=== PATIENT | female | born 1975 ===

== ENCOUNTER → 2020-07-24 | Outpatient (CLI) | payer OTHER ==
[~2020-07-24] MED LIST: PREN-37 PO
[2020-07-24 12:17] LABS: BASOPHILS % (AUTO) 0 % (0-10); EOSINOPHILS # (AUTO) 0.3 10^3/uL (0.0-0.3); EOSINOPHILS % (AUTO) 4 % (0-10); HEMATOCRIT 39 % (35-52); HEMOGLOBIN 12.2 g/dL (11.5-16.0); LYMPHOCYTES % (AUTO) 11 % (12-44); MEAN CORPUSCULAR HEMOGLOBIN 27 pg (25-34); MEAN CORPUSCULAR HGB CONC 31 g/dL (32-36); MEAN CORPUSCULAR VOLUME 86 fL (80-99); MEAN PLATELET VOLUME 9.1 fL (9.0-12.2); MONOCYTES # (AUTO) 0.5 10^3/uL (0.0-1.0); MONOCYTES % (AUTO) 6 % (0-12); NEUTROPHILS # (AUTO) 6.6 10^3/uL (1.8-7.8); NEUTROPHILS % (AUTO) 78 % (42-75); PLATELET COUNT 263 10^3/uL (130-400); WHITE BLOOD COUNT 8.4 10^3/uL (4.3-11.0)
== END ==
LOC: LAB 12:01
PROVIDERS: ATTEND Nurse Practitioner Family
DX: R04.2 Hemoptysis (principal)
CPT/HCPCS: 36415; 85025; 86480

== ENCOUNTER 2020-09-07 05:29 | Outpatient (RCR) | payer OTHER ==
[~2020-09-07] VITALS: Ht 152.4 cm; Wt 60.2 kg
[~2020-09-07 05:29] MED LIST changes: +LEVO50CA4 PO; +METF-397 PO
--- NOTE | 2020-09-08 08:50 | NUR ---
Notified patient of positive COVID test.
== END 2020-09-07 11:43 | disposition home or self-care (01) ==
LOC: PREOP 05:29
PROVIDERS: ATTEND Surgery
DX: Z01.812 Encounter for preprocedural laboratory examination (principal); U07.1 COVID-19; R10.13 Epigastric pain; R11.0 Nausea
CPT/HCPCS: 87635

== ENCOUNTER 2020-10-16 10:03 | Day surgery (SDC) | payer OTHER ==
[~2020-10-16] VITALS: Ht 152.4 cm; Wt 60.2 kg
[2020-10-16] MEDS ORDERED: LACTATED RINGERS 1,000 ML IV ONE (10:09)
[2020-10-16] MEDS ORDERED: LACTATED RINGERS 1,000 ML IV STA (10:29)
[2020-10-16] MEDS ORDERED: HURRICAINE EXT TUBE (BENZOCAINE) XX PRN (10:30)
[2020-10-16 11:01] VITALS: BP 106/69
[2020-10-16] MEDS ORDERED: proPOfol 200 MG/20 ML (DIPRIVAN) VIAL IV ONE ×2 (11:43→11:57)
[2020-10-16] MEDS ORDERED: HURRICAINE EXT TUBE (BENZOCAINE) ONE (11:56)
[2020-10-16 12:15] VITALS: BP 109/69
[2020-10-16 12:20] VITALS: BP 105/66
--- NOTE | 2020-10-16 12:20 | Progress Note-Post Operative ---
Post-Operative Progess Note Surgeon (s)/Metal Fitter (s) Surgeon GERSON BOLANOS DO Metal Fitter: none Pre-Operative Diagnosis RUQ pain, Nausea Post-Operative Diagnosis Gastritis Esophagitis Gastric Polyps Procedure & Operative Findings Date of Procedure 10/16/20 Procedure Performed/Findings EGD with bx EGD with snare polypectomy Anesthesia Type IV sedation by SQL CONSULTANT Estimated Blood Loss Estimated blood loss (mL): scant Specimens/Packing Specimens Removed antral bx body of stomach bx GE jxn bx Gastric polyp x 4 GERSON BOLANOS DO Oct 16, 2020 12:20
--- NOTE | 2020-10-16 12:21 | Endoscopy Discharge Instruct ---
Endo Procedure/Findings Findings 1.: Polyp (Gastric) 2.: Gastritis Discharge Instructions - Activity: You might feel a little sleepy until tomorrow. This is due to the medicine you received to relax you. Until tomorrow, you should: NOT drive a car, operate machinery or power tools. NOT drink any alcoholic beverages. NOT make any important decisions or sign importortant papers. Do not return to work until tomorrow, unless otherwise instructed. Resume previous activities tomorrow. Diet: Start by taking liquids. If you tolerate liquids, advance to solid food. 1.: EGD in 1 year Notify Physician - If you experience excessive bleeding, unusual abdominal pain, fever, or chest pain, contact your doctor immediately. GERSON BOLANOS DO Oct 16, 2020 12:21
[2020-10-16 12:25] VITALS: BP_SYST 111; BP_SYST 114; BP_DIAS 69; BP_DIAS 70
[2020-10-16 12:55] VITALS: BP 121/85
--- NOTE | 2020-10-16 13:17 | Anesthesia-General Post-Op ---
MAC Patient Condition Mental Status/LOC: Same as Preop Cardiovascular: Satisfactory Nausea/Vomiting: Absent Respiratory: Satisfactory Pain: Controlled Complications: Absent Post Op Complications Complications None Follow Up Care/Instructions Patient Instructions None needed. Anesthesiology Discharge Order Discharge Order Patient is doing well, no complaints, stable vital signs, no apparent adverse anesthesia problems. No complications reported per nursing. ERNESTO CORTEZ CRNA Oct 16, 2020 13:17
[2020-10-16 13:25] VITALS: BP 121/85
--- NOTE | 2020-10-16 23:24 | OPERATIVE REPORT ---
DATE OF SERVICE: PREOPERATIVE DIAGNOSES: Right upper quadrant pain, nausea. POSTOPERATIVE DIAGNOSES: Gastritis, esophagitis as well as gastric polyps. PROCEDURES: 1. EGD with biopsy. 2. EGD with hot snare to remove polyps in the stomach. SURGEON: Ayden Mcfarlane DO FLOORMAN: None. ANESTHESIA: IV sedation by the FISH CLEANER. SPECIMEN: Biopsy of the antrum, biopsy of body of stomach, biopsy of the GE junction and then 5 polyps removed. PROCEDURE NOTE: After informed consent was obtained, the patient was brought to the endoscopy suite, placed in bed in left lateral decubitus position. He was administered IV sedation by the FISH CLEANER who then monitored her vitals the entire time, heart rate, blood pressure and pulse ox and the scope was inserted down the mouth through the esophagus into the stomach. Upon entering the stomach, noted some pretty severe polyps, some gastritis, look like she also had some esophagitis. Pushed through to the antrum, took a picture of the antrum, pushed into the duodenum. Duodenum looked fine. Pulled back and did a biopsy of the antrum. Retroflexed the scope, did not see a hiatal hernia, did a biopsy of the body of stomach and then pulled the scope into the GE junction where it looked like she had some creeping up of the Z line and did another biopsy here. The patient had multiple polyps in the stomach, few of them looked like normal fundic gland polyps and some of them did not look like fundic gland polyps. Elected to do hot biopsies to remove these, removed out five polyps that did not look abnormal, suctioned all this up and sent to pathology. At this point, then suctioned all the air out of stomach, pulled the scope up the esophagus and out the mouth. The patient tolerated the procedure, and she was recovered in endoscopy suite. Job ID: [id number] DocumentID: [id number] Dictated Date: 10/16/2020 22:33:53 Sprinkling Truck Driver Date: 10/16/2020 23:23:27 Dictated By: AYDEN MCFARLANE DO
== END 2020-10-16 13:25 | disposition home or self-care (01) ==
LOC: ENDO 10:03
PROVIDERS: ATTEND Surgery
DX: K29.50 Unspecified chronic gastritis without bleeding (principal); K21.00 Gastro-esophageal reflux disease with esophagitis, without bleeding; K31.7 Polyp of stomach and duodenum; I10 Essential (primary) hypertension; K21.9 Gastro-esophageal reflux disease without esophagitis; E11.9 Type 2 diabetes mellitus without complications; E03.9 Hypothyroidism, unspecified; Z79.899 Other long term (current) drug therapy; Z88.8 Allergy status to other drugs, medicaments and biological substances; Z91.041 Radiographic dye allergy status
CPT/HCPCS: 82962; 84703

== ENCOUNTER 2020-10-30 05:30 | Outpatient (RCR) | payer OTHER ==
[~2020-10-30] VITALS: Ht 154.9 cm; Wt 59.0 kg
== END 2020-10-30 10:19 | disposition home or self-care (01) ==
LOC: PREOP 05:30
PROVIDERS: ATTEND Surgery
DX: Z01.812 Encounter for preprocedural laboratory examination (principal); D49.7 Neoplasm of unspecified behavior of endocrine glands and other parts of nervous system; Z20.822 Contact with and (suspected) exposure to COVID-19
CPT/HCPCS: 87635

== ENCOUNTER → 2020-10-30 | Outpatient (CLI) | payer OTHER | LOC: LAB 08:33 | PROVIDERS: ATTEND Surgery | DX: D44.9 Neoplasm of uncertain behavior of unspecified endocrine gland (principal) | CPT/HCPCS: 36415; 82941; 86255; 86316; 86340 ==

== ENCOUNTER 2020-11-01 12:11 | Day surgery (SDC) | payer OTHER ==
[~2020-11-01] VITALS: Ht 154.9 cm; Wt 59.0 kg
[2020-11-01] MEDS ORDERED: LACTATED RINGERS 1,000 ML IV ONE (12:19)
[2020-11-01] MEDS ORDERED: PROPOFOL INJECTION 50 ML IV ONE (12:35)
[2020-11-01] MEDS ORDERED: MIDAZOLAM 2 MG/2 ML (VERSED) VIAL ONE (12:35)
--- NOTE | 2020-11-01 12:47 | Progress Note-Pre Operative ---
Pre-Operative Progress Note H&P Reviewed The H&P was reviewed, patient examined and no changes noted. Time Seen by Provider: 12:41 Date H&P Reviewed: Nov 01, 2020 Time H&P Reviewed: 12:41 Pre-Operative Diagnosis: Neuroendocrine tumor of stomach GERSON BOLANOS DO Nov 01, 2020 12:46
[2020-11-01] MEDS ORDERED: LACTATED RINGERS 1,000 ML IV STA (12:51)
[2020-11-01] MEDS ORDERED: HURRICAINE EXT TUBE (BENZOCAINE) XX PRN (13:00)
[2020-11-01 13:20] VITALS: BP 95/60
[2020-11-01 13:25] VITALS: BP 95/57
--- NOTE | 2020-11-01 13:26 | Progress Note-Post Operative ---
Post-Operative Progess Note Surgeon (s)/It Support Manager (s) Surgeon GERSON BOLANOS DO It Support Manager: none Pre-Operative Diagnosis Neuroendocrine tumor of stomach Post-Operative Diagnosis same pending path Procedure & Operative Findings Date of Procedure 11/01/20 Procedure Performed/Findings EGD with bx mapping Anesthesia Type IV sedation by SHIP FASTENER Estimated Blood Loss Estimated blood loss (mL): scant Specimens/Packing Specimens Removed Duodenal, Pylorus, antrum, greater curvature, lesser curvature, middle of stomach and random GERSON BOLANOS DO Nov 01, 2020 13:26
--- NOTE | 2020-11-01 13:27 | Endoscopy Discharge Instruct ---
Endo Procedure/Findings Findings 1.: Polyp Discharge Instructions - Activity: You might feel a little sleepy until tomorrow. This is due to the medicine you received to relax you. Until tomorrow, you should: NOT drive a car, operate machinery or power tools. NOT drink any alcoholic beverages. NOT make any important decisions or sign importortant papers. Do not return to work until tomorrow, unless otherwise instructed. Resume pr evious activities tomorrow. Diet: Start by taking liquids. If you tolerate liquids, advance to solid food. 1.: Other Recommendation (EGD in 6 months) Notify Physician - If you experience excessive bleeding, unusual abdominal pain, fever, or chest pain, contact your doctor immediately. GERSON BOLANOS DO Nov 01, 2020 13:27
[2020-11-01 13:28] VITALS: BP 113/77
[2020-11-01 13:30] VITALS: BP 99/62
[2020-11-01 13:35] VITALS: BP 99/62
[2020-11-01 14:09] VITALS: BP 105/63
--- NOTE | 2020-11-01 20:41 | OPERATIVE REPORT ---
DATE OF SERVICE: 11/01/2020 PREOPERATIVE DIAGNOSIS: Neuroendocrine tumor of the stomach. POSTOPERATIVE DIAGNOSIS: Neuroendocrine tumor of the stomach, pending pathology. PROCEDURE: EGD with biopsy. We did a mapping biopsy of the stomach. SURGEON: Ayden Mcfarlane DO PHARMACY TEACHER: None. ANESTHESIA: IV sedation by the TOW BOAT CAPTAIN. SPECIMEN: Multiple biopsies duodenum, right upper pylorus, antrum greater curvature, middle greater curvature, upper portion and lesser curvature middle of the stomach and then just too many polyps. BLOOD LOSS: Scant. FLUIDS: Per anesthesia. POSTOPERATIVE CONDITION: Stable. INDICATION FOR PROCEDURE: The patient is a 45-year-old female who unfortunately had an EGD with a biopsy that showed a neuroendocrine tumor, and she needed a complete workup. She needed a biopsy mapping of the stomach to determine where the tumors were. We also ordered some labs to try and determine which type of neuroendocrine tumor she had. FINDINGS: The patient had multiple polyps biopsied and mapping biopsy done. PROCEDURE NOTE: After informed consent was obtained, the patient was brought to the endoscopy suite, placed in bed in left lateral decubitus position. She was administered IV sedation by the TOW BOAT CAPTAIN who then monitored her vitals the entire time, heart rate, blood pressure and pulse ox and the scope was inserted, pushed down the mouth through the esophagus and into the stomach and then pushing the duodenum. Duodenum looked fine, took a biopsy of the duodenum, pulled back and then saw some little bit of inflammation at the pylorus and did a biopsy right on the pylorus, then pulled back and saw through the antrum, did a biopsy of the antrum and then in the greater curvature took out 2 polyps. This was close to the antrum, pulled back and then the middle portion of the greater curvature to get two more polyps, then went to the upper portion of the greater curvature and took another polyp, saw some polyps in the lesser curvature and took these out as well and then in between the greater and lesser curvature in the middle part of the stomach about prison between the antrum and the esophagus, took 2 more biopsies and then took random polyps. I did not really see very many polyps up in the cardia or near the esophagus. Most of them were in the distal 2/3rd and final thirds of the stomach basically starting just after the pylorus. The patient tolerated the procedure, suctioned all the air out of stomach and then pulled the scope up the esophagus and out the mouth. The patient was recovered in endoscopy suite. Job ID: [id number] DocumentID: [id number] Dictated Date: 11/01/2020 15:58:58 Pack Worker Supervisor Date: 11/01/2020 20:41:14 Dictated By: AYDEN MCFARLANE DO
--- NOTE | 2020-11-06 12:21 | Anesthesia-General Post-Op ---
MAC Significant Intra-Op Events Notes [id number] at [id number] Patient Condition Mental Status/LOC: Same as Preop Cardiovascular: Satisfactory Nausea/Vomiting: Absent Respiratory: Satisfactory Pain: Controlled Complications: Absent Post Op Complications Complications None Follow Up Care/Instructions Patient Instructions None needed. Anesthesiology Discharge Order Discharge Order Patient is doing well, no complaints, stable vital signs, no apparent adverse anesthesia problems. No complications reported per nursing. TYSON TOLLIVER CRNA Nov 06, 2020 12:21
== END 2020-11-01 14:30 | disposition home or self-care (01) ==
LOC: SDC 12:11
PROVIDERS: ATTEND Surgery
DX: K29.50 Unspecified chronic gastritis without bleeding (principal); C7A.092 Malignant carcinoid tumor of the stomach; I10 Essential (primary) hypertension; K21.9 Gastro-esophageal reflux disease without esophagitis; E11.9 Type 2 diabetes mellitus without complications; K57.92 Diverticulitis of intestine, part unspecified, without perforation or abscess without bleeding; Z79.899 Other long term (current) drug therapy; Z79.84 Long term (current) use of oral hypoglycemic drugs; Z91.041 Radiographic dye allergy status; Z88.8 Allergy status to other drugs, medicaments and biological substances
CPT/HCPCS: 82962; 84703; 88305; 88341; 88342; 88360

== ENCOUNTER 2020-12-22 15:20 | Outpatient (RCR) | payer OTHER ==
[2020-11-23 08:53] LABS: BASOPHILS % (AUTO) 0 % (0-10); EOSINOPHILS # (AUTO) 0.9 10^3/uL (0.0-0.3); EOSINOPHILS % (AUTO) 12 % (0-10); HEMATOCRIT 40 % (35-52); HEMOGLOBIN 12.3 g/dL (11.5-16.0); LYMPHOCYTES # (AUTO) 1.8 10^3/uL (1.0-4.0); LYMPHOCYTES % (AUTO) 25 % (12-44); MEAN CORPUSCULAR HEMOGLOBIN 26 pg (25-34); MEAN CORPUSCULAR HGB CONC 31 g/dL (32-36); MEAN CORPUSCULAR VOLUME 83 fL (80-99); MEAN PLATELET VOLUME 8.8 fL (9.0-12.2); MONOCYTES # (AUTO) 0.4 10^3/uL (0.0-1.0); MONOCYTES % (AUTO) 6 % (0-12); NEUTROPHILS % (AUTO) 56 % (42-75); PLATELET COUNT 341 10^3/uL (130-400); WHITE BLOOD COUNT 7.2 10^3/uL (4.3-11.0)
[2020-11-23 09:15] LABS: ALANINE AMINOTRANSFERASE 38 U/L (0-55); ALBUMIN 4.1 GM/DL (3.2-4.5); ALKALINE PHOSPHATASE 69 U/L (40-136); BILIRUBIN,TOTAL 0.3 MG/DL (0.1-1.0); BUN/CREATININE RATIO 13; CALCIUM 9.2 MG/DL (8.5-10.1); CARBON DIOXIDE 27 MMOL/L (21-32); CHLORIDE 105 MMOL/L (98-107); CREATININE SERUM 0.67 MG/DL (0.60-1.30); GFR ESTIMATED > 60; GLUCOSE 111 MG/DL (70-105); POTASSIUM 4.4 MMOL/L (3.6-5.0); SODIUM 141 MMOL/L (135-145); TOTAL PROTEIN 7.4 GM/DL (6.4-8.2)
[~2020-12-22 15:20] MED LIST changes: +IRON SUCROSE 100 MG/5 ML (VENOFER) VIAL CANCER CTR IV SCH; +IRON SUCROSE IV SCH
== END 2021-02-18 | disposition home or self-care (01) ==
LOC: ONC 15:20
PROVIDERS: ATTEND Internal Medicine Hematology & Oncology
DX: C7A.092 Malignant carcinoid tumor of the stomach (principal)
CPT/HCPCS: 80053; 82607; 82728; 82746; 82941; 83540; 83550; 85025; 96374; 99214

== ENCOUNTER 2021-07-05 05:31 | Outpatient (RCR) | payer OTHER ==
[~2021-07-05] VITALS: Ht 152.4 cm; Wt 59.9 kg
[~2021-07-05 05:31] MED LIST changes: +FAMO20TA3 PO; -IRON SUCROSE 100 MG/5 ML (VENOFER) VIAL CANCER CTR IV SCH; -IRON SUCROSE IV SCH
== END 2021-07-05 09:17 | disposition home or self-care (01) ==
LOC: PREOP 05:31
PROVIDERS: ATTEND Surgery
DX: Z01.812 Encounter for preprocedural laboratory examination (principal); K62.5 Hemorrhage of anus and rectum; K29.70 Gastritis, unspecified, without bleeding; Z20.822 Contact with and (suspected) exposure to COVID-19
CPT/HCPCS: 87635

== ENCOUNTER 2021-07-09 10:16 | Day surgery (SDC) | payer OTHER ==
[~2021-07-09] VITALS: Ht 152.4 cm; Wt 59.9 kg
[2021-07-09] MEDS ORDERED: LACTATED RINGERS 1,000 ML IV STA (10:21)
[2021-07-09] MEDS ORDERED: LACTATED RINGERS 1,000 ML IV ONE (10:24)
[2021-07-09] MEDS ORDERED: HURRICAINE EXT TUBE (BENZOCAINE) XX PRN (10:30)
[2021-07-09] MEDS ORDERED: HURRICAINE EXT TUBE (BENZOCAINE) ONE (10:31)
[2021-07-09 10:45] VITALS: BP 120/79
[2021-07-09] MEDS ORDERED: PROPOFOL INJECTION 50 ML IV ONE (11:01)
--- NOTE | 2021-07-09 11:01 | Progress Note-Pre Operative ---
Pre-Operative Progress Note H&P Reviewed The H&P was reviewed, patient examined and no changes noted. Time Seen by Provider: 10:59 Date H&P Reviewed: Jul 09, 2021 Time H&P Reviewed: 10:59 Pre-Operative Diagnosis: Rectal bleed, severe gastritis GERSON BOLANOS DO Jul 09, 2021 11:00
[2021-07-09 11:53] VITALS: BP 120/74
[2021-07-09 11:58] VITALS: BP 119/77
--- NOTE | 2021-07-09 11:58 | Anesthesia-General Post-Op ---
MAC Patient Condition Mental Status/LOC: Same as Preop Cardiovascular: Satisfactory Nausea/Vomiting: Absent Respiratory: Satisfactory Pain: Controlled Complications: Absent Post Op Complications Complications None Follow Up Care/Instructions Patient Instructions None needed. Anesthesiology Discharge Order Discharge Order Patient is doing well, no complaints, stable vital signs, no apparent adverse anesthesia problems. VICTOR HUGO VELASCO DO Jul 09, 2021 11:58
[2021-07-09 12:00] VITALS: BP 119/77
[2021-07-09 12:30] VITALS: BP 116/80
--- NOTE | 2021-07-09 12:39 | Progress Note-Post Operative ---
Post-Operative Progess Note Surgeon (s)/Wealth Management Director (s) Surgeon GERSON BOLANOS DO Wealth Management Director: Deejay Araujo MSIII Pre-Operative Diagnosis Rectal bleed, severe gastritis Post-Operative Diagnosis Severe Gastritis Gastric polyps small hiatal hernia colon polyps diverticula int hemorrhoids Procedure & Operative Findings Date of Procedure 07/09/21 Procedure Performed/Findings EGD with bx EGD with hot bx removal of polyps Colon with hot bx PROCEDURE NOTE: After informed consent was obtained, the patient was brought to the endoscopy suite, placed in bed in left lateral decubitus position. She was administered IV sedation by the COMMODITY INDUSTRY ANALYST who then monitored vitals the entire time, heart rate, blood pressure and pulse ox and the scope was inserted down the mouth through the esophagus into the stomach. On the way down, noted some mild esophagitis, took a picture, pushed into the stomach and noted pretty severe Gastritis. Pushed past the antrum into the duodenum; duodenum looked good. Pulled back and did a biopsy of antrum, then retroflexed the scope, saw very small hiatal hernia, took a picture of this. I then also saw some polyps, elected to do a hot biopsy to remove about 3 polyps to be sent to pathology. Then did a biopsy of the body of the stomach. Pulled the scope into the GE junction and then did a biopsy of the GE junction. Pushed the scope back into the stomach, suctioned all the air out of the stomach. At this point pulled the scope up the esophagus and out the mouth. Switched camera, switched gloves, went down below, started the colonoscopy. Pushed all the way into about 140 cm to get all the way to cecum; on the way in noted diverticula. Once in the cecum took a picture of the appendiceal orifice, noted the ileocecal valve. Then slowly withdrew the scope, insufflating to look circumferentially at the park. Starting in the cecum, up the ascending colon where I saw a large polyp; may have been lipoma and elected to do a hot biopsy of this. Continued to the hepatic flexure, then down the transverse colon to the splenic flexure. Into the descending colon, where I took pictures of the diverticula and saw another polyp; took a picture and then did another hot biopsy. Finally down into the sigmoid and finally into the rectum, retroflexed in the rectal vault, saw some minimal internal hemorrhoids and took a picture of this. The patient tolerated the procedure and she recovered in the endoscopy suite. Anesthesia Type IV sedation by Anesthesia Estimated Blood Loss Estimated blood loss (mL): scant Specimens/Packing Specimens Removed antral bx body of stomach bx GE jxn bx gastric polyps asc colon polyp desc colon polyp GERSON BOLANOS DO Jul 09, 2021 12:39
--- NOTE | 2021-07-09 12:41 | Endoscopy Discharge Instruct ---
Endo Procedure/Findings Findings 1.: Hiatal Hernia, Gastritis 2.: Other Findings (Gastric polyps) 3.: Polyp 4.: Diverticulosis, Internal Hemorrhoids Discharge Instructions - Activity: You might feel a little sleepy until tomorrow. This is due to the medicine you received to relax you. Until tomorrow, you should: NOT drive a car, operate machinery or power tools. NOT drink any alcoholic beverages. NOT make any important decisions or sign importortant papers. Do not return to work until tomorrow, unless otherwise instructed. Resume previous activities tomorrow. Diet: Start by taking liquids. If you tolerate liquids, advance to solid food. 1.: EGD in 1 year 2.: Colonscopy in 5 years Notify Physician - If you experience excessive bleeding, unusual abdominal pain, fever, or chest pain, contact your doctor immediately. GERSON BOLANOS DO Jul 09, 2021 12:41
[2021-07-09 12:47] VITALS: BP 116/80
== END 2021-07-09 12:47 | disposition home or self-care (01) ==
LOC: ENDO 10:16
PROVIDERS: ATTEND Surgery
DX: D12.4 Benign neoplasm of descending colon (principal); K57.31 Diverticulosis of large intestine without perforation or abscess with bleeding; K29.51 Unspecified chronic gastritis with bleeding; K31.7 Polyp of stomach and duodenum; K44.9 Diaphragmatic hernia without obstruction or gangrene; K64.8 Other hemorrhoids; K52.89 Other specified noninfective gastroenteritis and colitis; E07.9 Disorder of thyroid, unspecified; E11.9 Type 2 diabetes mellitus without complications; I10 Essential (primary) hypertension; K21.9 Gastro-esophageal reflux disease without esophagitis; Z79.899 Other long term (current) drug therapy; Z79.84 Long term (current) use of oral hypoglycemic drugs; Z79.891 Long term (current) use of opiate analgesic; Z90.49 Acquired absence of other specified parts of digestive tract; Z85.020 Personal history of malignant carcinoid tumor of stomach
CPT/HCPCS: 82947; 84703; 88305; 88342

== ENCOUNTER → 2021-07-18 | Outpatient (CLI) | payer OTHER ==
--- NOTE | 2021-07-18 16:32 | Diagnostic Imaging Report ---
INDICATION: Routine screening. COMPARISON: No prior mammograms are available for comparison. This is a baseline study. TECHNIQUE: 2D and 3D bilateral screening mammography was performed with CAD. FINDINGS: Both breasts are heterogeneously dense, limiting the sensitivity of mammography. No mass or malignant-appearing microcalcifications are seen. The axillae are unremarkable. IMPRESSION: No mammographic features suspicious for malignancy are identified. ACR BI-RADS Category 1: Negative. Result letter will be mailed to the patient. Note: At least 10% of breast cancer is not imaged by mammography. Dictated by: Dictated on workstation # [id number]
== END ==
LOC: RAD 14:45
PROVIDERS: ATTEND Surgery
DX: Z12.31 Encounter for screening mammogram for malignant neoplasm of breast (principal)
CPT/HCPCS: 77063; 77067